=== PATIENT | female | born 1985 | race Caucasian/White ===

== ENCOUNTER 2019-01-28 20:16 | Emergency (ER) | payer BC ==
[~2019-01-28] VITALS: Wt 59.6 kg
[2019-01-28 20:18] VITALS: BP 125/73; PULSE 65; RESP 18
[2019-01-28] MEDS ORDERED: CYCL10TA7 PO (20:54)
--- NOTE | 2019-01-28 21:01 | ERD ---
ER Documentation Chief Complaint Chief Complaint NECK PAIN S/P GROUND LEVEL FALL HPI 33-year-old female presents due to neck stiffness secondary to a fall incurred a week ago while at work. States that after she fell she went to the urgent care and fracture was ruled out. Currently denies any neck pain. She is been taking ibuprofen but would like something for the stiffness. Denies any pain, fevers, numbness, tingling, weakness. Denies past medical history. Denies allergies. Denies medications. Denies surgeries. Denies alcohol, tobacco, drug use. Up to date on vaccines. ROS All systems reviewed and are negative except as per history of present illness. Medications Home Meds Active Scripts Cyclobenzaprine Hcl* (Cyclobenzaprine Hcl*) 10 Mg Tablet, 10 MG PO TID for neck pain, #20 TAB Prov:MIHAI SANTOS 01/28/19 Allergies Allergies: Uncoded Allergies: SULFA (Allergy, Intermediate, 01/28/19) PMhx/Soc History of Surgery: No Anesthesia Reaction: No Hx Neurological Disorder: No Hx Respiratory Disorders: No Hx Cardiac Disorders: No Hx Psychiatric Problems: Yes (anorexia, depression) Hx Miscellaneous Medical Probl: No Hx Alcohol Use: No Hx Substance Use: No Hx Tobacco Use: No Smoking Status: Never smoker FmHx Family History: No diabetes, No coronary disease, No other Physical Exam Vitals Vital Signs Date Temp Pulse Resp B/P (MAP) Pulse Ox O2 O2 Flow FiO2 Time Delivery Rate 01/28/19 97.8 65 18 125/73 100 20:18 (90) Physical Exam Const: No acute distress Head: Atraumatic Eyes: Normal Conjunctiva ENT: Normal External Ears, Nose and Mouth. Neck: Limited range of motion. No midline tenderness to palpation. No edema, erythema, ecchymosis or bony deformities noted. Resp: Clear to auscultation bilaterally Cardio: Regular rate and rhythm, no murmurs Abd: Soft, non tender, non distended. Normal bowel sounds Skin: No petechiae or rashes Back: No midline or flank tenderness Ext: No cyanosis, or edema Neur: Awake and alert Psych: Normal Mood and Affect Procedures/MDM 33-year-old female presents due to neck stiffness secondary to a fall incurred a week ago while at work. States that after she fell she went to the urgent care and fracture was ruled out. Currently denies any neck pain. She is been taking ibuprofen but would like something for the stiffness. Denies any pain, numbness, tingling, weakness. Denies past medical history. Denies allergies. Denies medications. Denies surgeries. Denies alcohol, tobacco, drug use. Up to date on vaccines. I have low suspicion for neurovascular compromise, compartment syndrome, fracture, osteomyelitis, septic joint, or other emergent condition. Patient most likely suffering from muscle stiffness secondary to fall. Patient stated that she did not want x-rays and I do not think that x-rays are indicated. Patient given Rx for muscle relaxant. Patient discharged with strict ER precautions. Patient advised to follow up with PMD. All questions answered at discharge. Departure Diagnosis: Primary Impression: Neck pain Condition: Stable Patient Instructions: Back And Neck Pain, General Referrals: [facility] YOU HAVE RECEIVED A MEDICAL SCREENING EXAM AND THE RESULTS INDICATE THAT YOU DO NOT HAVE A CONDITION THAT REQUIRES URGENT TREATMENT IN THE EMERGENCY DEPARTMENT. FURTHER EVALUATION AND TREATMENT OF YOUR CONDITION CAN WAIT UNTIL YOU ARE SEEN IN YOUR DOCTORS OFFICE WITHIN THE NEXT 1-2 DAYS. IT IS YOUR RESPONSIBILITY TO MAKE AN APPOINTMENT [facility]. IF YOU HAVE A PRIMARY DOCTOR --you should call your primary doctor and schedule an appointment IF YOU DO NOT HAVE A PRIMARY DOCTOR YOU CAN CALL OUR PHYSICIAN REFERRAL HOTLINE AT IF YOU CAN NOT AFFORD TO SEE A PHYSICIAN YOU CAN CHOSE FROM THE FOLLOWING [facility] [address] [facility] [facility] [address] [facility] [address] [facility] [facility] [address] [facility]. [facility] [address] [facility]. [facility]. [address] Additional Instructions: FOLLOW UP WITH YOUR PRIMARY CARE PHYSICIAN TOMORROW.Return to this facility if you are not improving as expected. MIHAI SANTOS Jan 28, 2019 21:01
== END 2019-01-28 21:13 | disposition home or self-care (01) ==
LOC: FTE 20:16
DX: M54.2 Cervicalgia (principal)
CPT/HCPCS: 99283

== ENCOUNTER 2019-07-30 21:08 | Emergency (ER) | payer BC ==
[~2019-07-30] VITALS: Ht 165.1 cm; Wt 57.7 kg
[~2019-07-30 21:08] MED LIST: CYCL10TA7 PO; NAPR-985 PO
[2019-07-30 21:09] VITALS: BP 117/55; PULSE 64; RESP 16; Ht 165.1 cm; Wt 57.7 kg
[2019-07-30] MEDS ORDERED: KETOROLAC 30 MG INJ IM STA (21:49)
[2019-07-30] MEDS ORDERED: DEXAMETHASONE 10 MG/ML 1 ML INJ IM ONE (22:00)
== END 2019-07-30 22:34 | disposition home or self-care (01) ==
LOC: FTE 21:08
DX: M54.42 Lumbago with sciatica, left side (principal)
CPT/HCPCS: 81003; 81025; 96372; 99284; J1100; J1885